=== PATIENT | male | born 1970 | race African-American/Black ===

== ENCOUNTER 2016-11-08 07:16 | Emergency (ER) | payer OTHER ==
[2016-11-08] MEDS ORDERED: KETOROLAC 30 MG/ML VIAL ONE (08:38)
[2016-11-08] MEDS ORDERED: ORPHENADRINE 60 MG/2 ML AMP ONE (08:38)
[2016-11-08] MEDS ORDERED: DILAUDID 1 MG/ML AMP ONE ×2 (10:32→11:26)
== END 2016-11-08 12:42 | disposition home or self-care (01) ==
LOC: ER 07:16
CPT/HCPCS: 96372 ×2; 96374 ×2; 96376 ×2; 99283; J1170; J1885